=== PATIENT | male | born 1980 | race Caucasian/White ===

== ENCOUNTER 2016-12-26 20:48 | Emergency (ER) | payer BC ==
[~2016-12-26] VITALS: Ht 172.7 cm; Wt 92.5 kg
[2016-12-27 00:21] VITALS: BP 129/82
== END 2016-12-27 00:21 | disposition home or self-care (01) ==
LOC: ED 20:48
DX: S22.31XA Fracture of one rib, right side, initial encounter for closed fracture (principal); M25.511 Pain in right shoulder; W18.30XA Fall on same level, unspecified, initial encounter; Y93.89 Activity, other specified; Y99.8 Other external cause status; Y92.89 Other specified places as the place of occurrence of the external cause
CPT/HCPCS: J1885